=== PATIENT | female | born 1985 | race Hispanic/Latino ===

== ENCOUNTER 2019-05-04 | Emergency (ER) | payer OTHER, SELFPAY ==
--- NOTE | 2019-05-04 12:46 | ER ---
Nurse's Notes [facility] Name: Gail Aden Age: 33 yrs Sex: Female : 1985 Arrival Date: 05/04/2019 Time: 12:18 Bed 15 Private MD: Diagnosis: Paresthesia of skin Presentation: 05/03 12:21 Chief complaint: Patient states: R arm numbness started this morning. R big toe sharp ca1 pain, intermittent. Tingling on R side of the body x couple days. Denies fever, cough and congestion. Coronavirus screen: Patient denies fever greater than 100.4F, cough, shortness of breath, or difficulty breathing. Proceed with normal triage process. Ebola Screen: Patient negative for fever greater than or equal to 101.5 degrees Fahrenheit, and additional compatible Ebola Virus Disease symptoms Patient denies exposure to infectious person. Patient denies travel to an Ebola-affected area in the 21 days before illness onset. No symptoms or risks identified at this time. Initial Sepsis Screen: Does the patient meet any 2 criteria? No. Patient's initial sepsis screen is negative. Does the patient have a suspected source of infection? No. Patient's initial sepsis screen is negative. Risk Assessment: Do you want to hurt yourself or someone else? Patient reports no desire to harm self or others. Onset of symptoms was May 04, 2019. 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 - Social history:: Smoking status: Patient denies any tobacco usage or history of. Screenin:40 Abuse screen: Denies threats or abuse. Denies injuries from another. Nutritional jl7 screening: No deficits noted. Tuberculosis screening: No symptoms or risk factors identified. Fall Risk None identified. Assessment: 12:40 General: Appears in no apparent distress. uncomfortable, Behavior is cooperative. Pain: jl7 Denies pain. Neuro: Level of Consciousness is awake, alert, obeys commands, Oriented to person, place, time, situation. Cardiovascular: Patient's skin is warm and dry. Respiratory: Airway is patent Respiratory effort is even, unlabored, Respiratory pattern is regular, symmetrical. Derm: Skin is pink, warm \T\ dry. Vital Signs: 12:21 BP 120 / 73; Pulse 104; Resp 16 S; Temp 98.1(O); Pulse Ox 100% on R/A; Weight 54.43 kg ca1 (R); Height 5 ft. 1 in. (154.94 cm) (R); Pain 0/10; 12:21 Body Mass Index 22.67 (54.43 kg, 154.94 cm) ca1 ED Course: 12:18 Patient arrived in ED. ag5 12:23 Triage completed. ca1 12:25 Arm band placed on right wrist. ca1 12:26 Deidre Pierce RN is Primary Nurse. jl7 12:32 Lindsey Stein FNP-C is PHCP. snw 12:32 Shailesh Osman MD is Attending Physician. snw 12:40 Patient has correct armband on for positive identification. Bed in low position. Call jl7 light in reach. Side rails up X 1. 12:51 No provider procedures requiring assistance completed. Patient did not have IV access jl7 during this emergency room visit. Administered Medications: No medications were administered Outcome: 12:45 Discharge ordered by MD. snw 12:51 Discharged to home ambulatory. jl7 12:51 Condition: stable 12:51 Discharge instructions given to patient, Instructed on discharge instructions, follow up and referral plans. medication usage, Demonstrated understanding of instructions, follow-up care, medications, Prescriptions given X 1. 12:52 Patient left the ED. jl7 Signatures: Lindsey Stein FNP-C RABBIT FANCIER-Csnw Deidre Pierce RN RN jl7 Josey Horton RN RN ca1 Hardik Vang ag5
--- NOTE | 2019-05-04 12:46 | EDPHYS ---
Physician Documentation [facility] Name: Gail Aden Age: 33 yrs Sex: Female : 1985 Arrival Date: 05/04/2019 Time: 12:18 Bed 15 Private MD: ED Physician Shailesh Osman HPI: 05/03 12:50 This 33 yrs old Female presents to ER via Ambulatory with complaints of snw Numbness Of Arm. 12:50 The patient or guardian complains of numbness to right arm, painful to point right snw great toe intermittently. 12:51 The patient's problem is reported as paresthesias, in right upper extremity, in right snw lower extremity. Onset: The symptoms/episode began/occurred 3 week(s) ago, and became worse today, and became persistent. Context: the episode(s) was witnessed, by no one. Severity of symptoms: At their worst the symptoms were very mild. The patient has experienced a previous episode. The patient has not recently seen a physician. 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 - Social history:: Smoking status: Patient denies any tobacco usage or history of. ROS: 12:46 Constitutional: Negative for fever, chills, and weight loss, Eyes: Negative for injury, snw pain, redness, and discharge, pt told a few months ago that she had an odd finding on retinal exam and needed to see Neurology ENT: Negative for injury, pain, and discharge, Neck: Negative for injury, pain, and swelling, Cardiovascular: Negative for chest pain, palpitations, and edema, Respiratory: Negative for shortness of breath, cough, wheezing, and pleuritic chest pain, Abdomen/GI: Negative for abdominal pain, nausea, vomiting, diarrhea, and constipation, Back: Negative for injury and pain, : Negative for injury, bleeding, discharge, and swelling, MS/Extremity: Negative for injury and deformity, Skin: Negative for injury, rash, and discoloration, Neuro: Negative for headache, weakness, and seizure, Positive for numbness and tingling to right arm and leg (at great toe) Psych: Negative for depression, anxiety, suicide ideation, homicidal ideation, and hallucinations. Exam: 12:46 Constitutional: This is a well developed, well nourished patient who is awake, alert, snw and in no acute distress. Head/Face: Normocephalic, atraumatic. Eyes: Pupils equal round and reactive to light, extra-ocular motions intact. Lids and lashes normal. Conjunctiva and sclera are non-icteric and not injected. Cornea within normal limits. Periorbital areas with no swelling, redness, or edema. ENT: Nares patent. No nasal discharge, no septal abnormalities noted. Tympanic membranes are normal and external auditory canals are clear. Oropharynx with no redness, swelling, or masses, exudates, or evidence of obstruction, uvula midline. Mucous membranes moist. Neck: Trachea midline, no thyromegaly or masses palpated, and no cervical lymphadenopathy. Supple, full range of motion without nuchal rigidity, or vertebral point tenderness. No Meningismus. Chest/axilla: Normal chest wall appearance and motion. Nontender with no deformity. No lesions are appreciated. Cardiovascular: Regular rate and rhythm with a normal S1 and S2. No gallops, murmurs, or rubs. Normal PMI, no JVD. No pulse deficits. Respiratory: Lungs have equal breath sounds bilaterally, clear to auscultation and percussion. No rales, rhonchi or wheezes noted. No increased work of breathing, no retractions or nasal flaring. Abdomen/GI: Soft, non-tender, with normal bowel sounds. No distension or tympany. No guarding or rebound. No evidence of tenderness throughout. Back: No spinal tenderness. No costovertebral tenderness. Full range of motion. Skin: Warm, dry with normal turgor. Normal color with no rashes, no lesions, and no evidence of cellulitis. MS/ Extremity: Pulses equal, no cyanosis. Neurovascular intact. Full, normal range of motion. Neuro: Awake and alert, GCS 15, oriented to person, place, time, and situation. Cranial nerves II-XII grossly intact. Motor strength 5/5 in all extremities. Sensory grossly intact. Cerebellar exam normal. Normal gait. Psych: Awake, alert, with orientation to person, place and time. Behavior, mood, and affect are within normal limits. Vital Signs: 12:21 BP 120 / 73; Pulse 104; Resp 16 S; Temp 98.1(O); Pulse Ox 100% on R/A; Weight 54.43 kg ca1 (R); Height 5 ft. 1 in. (154.94 cm) (R); Pain 0/10; 12:21 Body Mass Index 22.67 (54.43 kg, 154.94 cm) ca1 MDM: 12:35 Patient medically screened. snw 12:50 Data reviewed: vital signs, nurses notes. Data interpreted: Pulse oximetry: on room air snw is 100 %. Interpretation: normal. Counseling: I had a detailed discussion with the patient and/or guardian regarding: the historical points, exam findings, and any diagnostic results supporting the discharge/admit diagnosis, to return to the emergency department if symptoms worsen or persist or if there are any questions or concerns that arise at home. Special discussion: Based on the history and exam findings, there is no indication for further emergent testing or inpatient evaluation. I discussed with the patient/guardian the need to see the neurologist for further evaluation of the symptoms. I discussed with the patient/guardian the need to see the primary care provider for further evaluation of the symptoms. Administered Medications: No medications were administered Disposition: 13:46 Co-signature as Attending Physician, Shailesh Osman MD I agree with the assessment and kdr plan of care. Disposition: 05/04/19 12:45 Discharged to Home. Impression: Paresthesia of skin. - Condition is Stable. - Discharge Instructions: Paresthesia. - Prescriptions for Motrin IB 200 mg Oral Tablet - take 2 tablet by ORAL route every 6 hours As needed as needed with food; 40 tablet. - Medication Reconciliation Form, Thank You Letter, Antibiotic Education, Prescription Opioid Use form. - Follow up: Emergency Department; When: As needed; Reason: Worsening of condition. Follow up: Private Physician; When: 1 week; Reason: Recheck today's complaints, Continuance of care, Re-evaluation by your physician. Signatures: Shailesh Osman MD MD kdr Therrien, Shelly, PROOF COINS INSPECTOR-C PROOF COINS INSPECTOR-Lucienw Deidre Pierce, RN RN jl7 Josey Horton RN RN ca1 Corrections: (The following items were deleted from the chart) 12:52 12:45 05/04/2019 12:45 Discharged to Home. Impression: Paresthesia of skin. Condition jl7 is Stable. Forms are Medication Reconciliation Form, Thank You Letter, Antibiotic Education, Prescription Opioid Use. Follow up: Emergency Department; When: As needed; Reason: Worsening of condition. Follow up: Private Physician; When: 1 week; Reason: Recheck today's complaints, Continuance of care, Re-evaluation by your physician. snw
== END 2019-05-04 12:52 | disposition home or self-care (01) ==
CPT/HCPCS: 99282